=== PATIENT | female | born 1950 | race Caucasian/White ===

== ENCOUNTER → 2021-06-14 | Outpatient (CLI) | payer MEDICARE | LOC: MC.RAD 09:02 | DX: R92.8 Other abnormal and inconclusive findings on diagnostic imaging of breast (principal) ==

== ENCOUNTER 2023-09-10 12:42 | Outpatient (CLI) | payer MEDICARE ==
[~2023-09-10] VITALS: Wt 52.2 kg
[2023-09-10] MEDS ORDERED: Denosumab 60 MG/ML SYRINGE SQ ONE (13:00)
[2023-09-10 14:00] VITALS: BP 114/66; PULSE 68; TEMP 98
[2023-09-10] MEDS ORDERED: DESYREL 100MG100 MG PO (15:22)
[2023-09-10] MEDS ORDERED: ZESTRIL 10MG10 MG PO (15:22)
[2023-09-10] MEDS ORDERED: HAIRSKINNAILS PO (15:23)
[2023-09-10] MEDS ORDERED: MULTIVITAMIN FO1 CAP PO (15:23)
[2023-09-10] MEDS ORDERED: SYNTHROID0.05 MG/TA PO (15:23)
== END 2023-09-10 13:45 | disposition home or self-care (01) ==
LOC: EUO 12:42
DX: M81.0 Age-related osteoporosis without current pathological fracture (principal)
CPT/HCPCS: J0897

== ENCOUNTER 2024-03-09 17:35 | Emergency (ER) | payer MEDICARE ==
[~2024-03-09] VITALS: Ht 165.1 cm; Wt 50.5 kg
[~2024-03-09 17:35] MED LIST: DESYREL 100MG100 MG PO; HAIRSKINNAILS PO; MULTIVITAMIN FO1 CAP PO; SYNTHROID0.05 MG/TA PO; ZESTRIL 10MG10 MG PO
[2024-03-09 17:40] VITALS: TEMP 97.9
[2024-03-09] MEDS ORDERED: Ondansetron 4 MG/2 ML VIAL IV ONE (18:00)
[2024-03-09] MEDS ORDERED: Morphine 4 MG/ML VIAL IV ONE (18:00)
[2024-03-09 18:12] LABS: BASO % 0.7 % (0.0-2.0); EOS # 0.1 K/mm3 (0.0-0.7); EOS % 1.8 % (0.0-4.0); GRAN # 3.2 K/mm3 (1.4-6.5); HEMATOCRIT 38.4 % (37.0-47.0); HEMOGLOBIN 12.7 g/dl (12.5-16.0); LYMPH # 2.1 K/mm3 (1.2-3.4); LYMPH % 35.5 % (20.0-51.0); MEAN CELL VOLUME 94 fl (80.0-100.0); MEAN CORPUSCULAR HEMOGLOBIN 31 pg (27-31); MEAN CORPUSCULAR HGB CONC 33 g/dl (33.0-37.0); MEAN PLATELET VOLUME 10.9 fl (7.4-10.4); MONO # 0.5 K/mm3 (0.1-0.6); MONO % 8.8 % (1.7-9.3); PLATELET COUNT 157 K/mm3 (130-400); RED BLOOD COUNT 4.08 M/mm3 (4.10-5.30); REDCELL DISTRIBUTION WIDTH-CV 12.5 % (11.5-14.5)
[2024-03-09] MEDS ORDERED: NS 1,000 ML IV ONE (18:15)
[2024-03-09 18:24] LABS: ALBUMIN 4.1 g/dL (3.4-4.8); BILIRUBIN,TOTAL 0.2 mg/dL (0.2-1.2); C-REACTIVE PROTEIN 0.09 mg/dL (0.00-0.50); CALCIUM 10.4 mg/dL (8.4-10.2); CREATININE, serum 1.16 mg/dL (0.57-1.11); POTASSIUM 4.3 mEq/L (3.5-4.5)
[2024-03-09] MEDS ORDERED: Iohexol 300 - 100 ML VIAL IV ONE (18:36)
[2024-03-09 18:37] LABS: COLLECTION METHOD CLEAN CATCH; URINE BLOOD NEGATIVE (NEGATIVE); URINE GLUCOSE NEGATIVE (NEGATIVE); URINE KETONE NEGATIVE (NEGATIVE); URINE NITRATE NEGATIVE (NEGATIVE); URINE PROTEIN(semi-quant) NEGATIVE (NEGATIVE); URINE UROBILINOGEN 0.2 E.U/dL (0.2-1.0)
[2024-03-09] MEDS ORDERED: NS 50 ML IV SCH (18:37)
[2024-03-09 18:38] LABS: URINE APPEARANCE CLEAR (CLEAR/HAZY); URINE COLOR YELLOW (YELLOW)
[2024-03-09] MEDS ORDERED: Amoxicillin/Clavulanate K+ 875/125 MG TAB PO ONE (19:30)
[2024-03-09] MEDS ORDERED: AMOXICILLIN 8751 TAB PO (19:33)
[2024-03-09 20:22] VITALS: BP 129/76; PULSE 57
== END 2024-03-09 20:27 | disposition home or self-care (01) ==
LOC: COL.ER 17:35
PROVIDERS: Nurse Practitioner
DX: K57.30 Diverticulosis of large intestine without perforation or abscess without bleeding (principal)
CPT/HCPCS: J2405; J7030; Q9967

== ENCOUNTER 2024-05-21 07:08 | Outpatient (CLI) | payer MEDICARE ==
[~2024-05-21] VITALS: Ht 165.1 cm; Wt 51.5 kg
[~2024-05-21 07:08] MED LIST changes: +AMOXICILLIN 8751 TAB PO
[2024-05-21] MEDS ORDERED: Denosumab 60 MG/ML SYRINGE SQ ONE (07:30)
[2024-05-21 07:40] VITALS: BP 94/51; PULSE 68; TEMP 98
[2024-05-21] MEDS ORDERED: ZOLOFT 100MG100 MG PO (09:28)
== END 2024-05-21 09:15 | disposition home or self-care (01) ==
LOC: EUO 07:08
DX: M81.0 Age-related osteoporosis without current pathological fracture (principal)
CPT/HCPCS: J0897